=== PATIENT | male | born 1960 | race Caucasian/White ===

== ENCOUNTER 2020-04-11 08:41 | Day surgery (SDC) | payer BC ==
[~2020-04-11] VITALS: Ht 172.7 cm; Wt 86.3 kg
[~2020-04-11 08:41] MED LIST: ASPI81CH PO; Augmentin 875-1 EACH PO; LOSHYD100 PO; MULTI VITAMIN1 EACH PO; POTCHL10ER PO
[2020-04-11] MEDS ORDERED: ATEN50 PO (09:18)
== END 2020-04-11 10:49 | disposition home or self-care (01) ==
LOC: ORSCSDS 08:41
PROVIDERS: Surgery
PROC: 0DBP8ZX Excision of Rectum, Via Natural or Artificial Opening Endoscopic, Diagnostic (ICD-10-PCS; principal; 2020-04-11 10:00)
DX: Z12.11 Encounter for screening for malignant neoplasm of colon (principal); K62.1 Rectal polyp; Z86.010 Personal history of colon polyps; I10 Essential (primary) hypertension; E78.00 Pure hypercholesterolemia, unspecified; Z79.82 Long term (current) use of aspirin; Z79.899 Other long term (current) drug therapy
CPT/HCPCS: 88305; J2704; J7120